=== PATIENT | female | born 1975 | race American Indian/Alaskan Native ===

== ENCOUNTER 2019-08-12 12:42 | Inpatient (IN) | payer OTHER, SELFPAY ==
[2019-08-12] MEDS ORDERED: ASPIRIN 81 MG TAB CHEW PO ONE (14:49)
--- NOTE | 2019-08-12 14:56 | Event Note ---
ED Screening Note Date of service: 08/12/19 Time: 14:49 ED Screening Note: 44-year-old -[place] female patient with history of hypertension (noncompliant with medications x2 years) presents with complaints of substernal chest pressure and headache x yesterday. She also states some mild shortness of breath Denies history of TX/PE/DVT/CVA This initial assessment/diagnostic orders/clinical plan/treatment(s) is/are subject to change based on patients health status, clinical progression and re- assessment by fellow clinical providers in the ED. Further treatment and workup at subsequent clinical providers discretion. Patient/guardian urged not to elope from the ED as their condition may be serious if not clinically assessed and managed. Initial orders include: EKG CXR labs Aspirin
[2019-08-12 15:28] LABS: Basophils # (Auto) 0.1 K/mm3 (0.0-0.1); Basophils % (Auto) 1.1 % (0.0-1.8); Eosinophils % (Auto) 0.5 % (0.0-4.3); Hematocrit 44.7 % (30.3-42.9); Hemoglobin 15.5 gm/dl (10.1-14.3); Lymphocytes # (Auto) 1.1 K/mm3 (1.2-5.4); Lymphocytes % (Auto) 21.6 % (13.4-35.0); Mean Corpuscular HGB Conc 35 % (30-34); Mean Corpuscular Volume 94 fl (79-97); Monocytes # (Auto) 0.3 K/mm3 (0.0-0.8); Monocytes % (Auto) 6.7 % (0.0-7.3); Platelet Count 229 K/mm3 (140-440); Red Blood Count 4.74 M/mm3 (3.65-5.03); Red Cell Distribution Width 16.6 % (13.2-15.2)
--- NOTE | 2019-08-12 15:29 | XRay Report ---
CHEST 1 VIEW INDICATION / CLINICAL INFORMATION: chest pain. COMPARISON: None available. FINDINGS: SUPPORT DEVICES: None. HEART / MEDIASTINUM: No significant abnormality. LUNGS / PLEURA: There are patchy airspace opacities noted in the lung bases. The upper lung zones are clear.. No pneumothorax. ADDITIONAL FINDINGS: No significant additional findings. IMPRESSION: 1. There are mild patchy airspace opacities in the lung bases. His could represent atelectasis. This could represent an evolving pneumonia. Signer Name: Josue Neil MD Signed: 08/12/2019 3:25 PM Workstation Name: [id number]
[2019-08-12 16:14] LABS: Alanine Aminotransferase 14 units/L (7-56); Albumin 3.8 g/dL (3.9-5); BUN/Creatinine Ratio 15; Blood Urea Nitrogen 9 mg/dL (7-17); Calcium 8.9 mg/dL (8.4-10.2); Hemolysis Index 7
--- NOTE | 2019-08-12 17:22 | Emergency Department Report ---
ED Chest Pain HPI - General Chief Complaint: Chest Pain Stated Complaint: CHEST PAIN Time Seen by Provider: 08/12/19 14:49 Source: patient Mode of arrival: Ambulatory Limitations: No Limitations - History of Present Illness Initial Comments: 44-year-old female the past medical history of hypertension off meds x2 years, obesity, and smoking history, and family history of CAD presents to the hospital complaining of chest pain or shortness of breath since yesterday. Patient having intermittent chest pressure. Chest pressure worse when lying supine and accompanied by shortness of breath. Since yesterday patient has had to elevate herself when lying on her back. She also has had dyspnea exertion since yesterday. Positive nausea without vomiting. Patient took herself off of hypertension meds 2 years ago because her blood pressure was good. This was not advised by her doctor and she has not checked her blood pressure since discontinuing the medication. She denies history of PE/DVT, recent travel, calf tenderness, leg edema, known coronavirus exposure, cough, fever, or loss of sense of taste or smell. Patient states her brother of an SC at age 45 last year - Related Data Allergies Allergy/AdvReac Type Severity Reaction Status Date / Time No Known Allergies Allergy Unverified 08/12/19 12:50 Heart Score - HEART Score History: Slightly suspicious EKG: Non-specific Age: 45-65 Risk factors: > 3 risk factors or hx of atherosclerotic disease Troponin: < normal limit HEART Score: 4 ED Review of Systems ROS: Stated complaint: CHEST PAIN Other details as noted in HPI Comment: All other systems reviewed and negative ED Past Medical Hx - Past Medical History Previous Medical History?: No - Surgical History Past Surgical History?: No - Social History Smoking Status: Current Every Day Smoker Substance Use Type: None ED Physical Exam - General Limitations: No Limitations - Other Other exam information: General: No acute distress Head: Atraumatic Eyes: normal appearance ENT: Moist mucous membranes Neck: Normal appearance, no midline tenderness Chest: Clear to auscultation bilaterally, no tachypnea or accessory muscle use CV: Regular rate and rhythm Abdomen: Soft, normal bowel sounds, nontender, nondistended, no rebound or guarding Back: Normal inspection Extremity: Normal inspection, full range of motion, no calf tenderness or leg edema Neuro: Alert O x 3, no facial asymmetry, speech clear, no gross motor sensory deficit Psych: Appropriate behavior Skin: No rash ED Course Vital Signs 08/12/19 08/12/19 08/12/19 14:49 14:50 17:45 Temperature 98.5 F Pulse Rate 89 Respiratory 18 18 Rate Blood Pressure 207/117 185/121 O2 Sat by Pulse 99 96 91 Oximetry 08/12/19 08/12/19 08/12/19 18:00 18:15 18:30 Temperature Pulse Rate Respiratory Rate Blood Pressure 200/114 190/112 202/126 O2 Sat by Pulse Oximetry 08/12/19 18:45 Temperature Pulse Rate 73 Respiratory Rate Blood Pressure 199/119 O2 Sat by Pulse 96 Oximetry - Consultations Consultation #1: 08/12/19 18:35 case d/w DR Horner cardiology, advices admission for cardiac workup, rec covid r/o based on cxr read with plan echo if covid negative. 08/12/19 19:22 case d/w Dr Thompson ID, no recommendations at this time, COVID test pending JEROME score - Jerome Score Age > 65: (0) No Aspirin use within the Past 7 Days: (0) No 3 or more CAD Risk Factors: (1) Yes 2 or more Angina events in past 24 hrs: (1) Yes Known CAD with more than 50% Stenosis: (0) No Elevated Cardiac Markers: (0) No ST Deviation Greater than 0.5mm: (0) No JEROME Score: 2 ED Medical Decision Making - Lab Data Result diagrams: 08/12/19 15:10 08/12/19 15:10 Lab Results 08/12/19 08/12/19 08/12/19 Range/Units 15:10 15:10 15:10 WBC 5.2 (4.5-11.0) K/mm3 RBC 4.74 (3.65-5.03) M/mm3 Hgb 15.5 H (10.1-14.3) gm/dl Hct 44.7 H (30.3-42.9) % MCV 94 (79-97) fl MCH 33 H (28-32) pg MCHC 35 H (30-34) % RDW 16.6 H (13.2-15.2) % Plt Count 229 (140-440) K/mm3 Lymph % (Auto) 21.6 (13.4-35.0) % [place] % (Auto) 6.7 (0.0-7.3) % Eos % (Auto) 0.5 (0.0-4.3) % Baso % (Auto) 1.1 (0.0-1.8) % Lymph # 1.1 L (1.2-5.4) K/mm3 [place] # 0.3 (0.0-0.8) K/mm3 Eos # 0.0 (0.0-0.4) K/mm3 Baso # 0.1 (0.0-0.1) K/mm3 Seg Neutrophils % 70.1 H (40.0-70.0) % Seg Neutrophils # 3.6 (1.8-7.7) K/mm3 Sodium 137 (137-145) mmol/L Potassium 3.8 (3.6-5.0) mmol/L Chloride 97.7 L (98-107) mmol/L Carbon Dioxide 25 (22-30) mmol/L Anion Gap 18 mmol/L BUN 9 (7-17) mg/dL Creatinine 0.6 L (0.7-1.2) mg/dL Estimated GFR > 60 ml/min BUN/Creatinine Ratio 15 % Glucose 94 (65-100) mg/dL Calcium 8.9 (8.4-10.2) mg/dL Total Bilirubin 0.70 (0.1-1.2) mg/dL AST 14 (5-40) units/L ALT 14 (7-56) units/L Alkaline Phosphatase 78 (35-129) units/L Troponin T < 0.010 (0.00-0.029) ng/mL NT-Pro-B Natriuret Pep 557.3 H (0-450) pg/mL Total Protein 8.9 H (6.3-8.2) g/dL Albumin 3.8 L (3.9-5) g/dL Albumin/Globulin Ratio 0.7 % - EKG Data -: EKG Interpreted by [facility] EKG shows normal: sinus rhythm, ST-T waves (LVH with repolarization abnormal) Rate: normal (77) - Radiology Data Radiology results: report reviewed CHEST 1 VIEW INDICATION / CLINICAL INFORMATION: chest pain. COMPARISON: None available. FINDINGS: SUPPORT DEVICES: None. HEART / MEDIASTINUM: No significant abnormality. LUNGS / PLEURA: There are patchy airspace opacities noted in the lung bases. The upper lung zones are clear.. No pneumothorax. ADDITIONAL FINDINGS: No significant additional findings. IMPRESSION: 1. There are mild patchy airspace opacities in the lung bases. His could represent atelectasis. This could represent an evolving pneumonia. Critical Care Time: No Critical care attestation.: If time is entered above; I have spent that time in minutes in the direct care of this critically ill patient, excluding procedure time. ED Disposition Clinical Impression: Uncontrolled hypertension, Dyspnea, Morbid obesity, Smoker, Noncompliance with medication regimen, Chest pain, Abnormal chest xray Disposition: OP ADMIT IP TO THIS HOSP Is pt being admited?: No Condition: Stable Time of Disposition: 19:22 (Dr Warren/hosp)
[2019-08-12] MEDS ORDERED: ASPIRIN 81 MG TAB CHEW ONE (17:32)
[2019-08-12] MEDS ORDERED: cloNIDine 0.1 MG TAB PO ONE (17:55)
[2019-08-12] MEDS ORDERED: FUROSEMIDE 40 MG/4 ML INJ IV ONE (18:09)
[2019-08-12 19:24] LABS: C-Reactive Protein 1.8 mg/dL (0.00-1.30)
[2019-08-12] MEDS ORDERED: ONDANSETRON 4 MG/2 ML INJ IV PRN (19:24)
[2019-08-12] MEDS ORDERED: ACETAMINOPHEN 325 MG TAB PO PRN (19:24)
--- NOTE | 2019-08-12 19:24 | History and Physical Report ---
History of Present Illness Chief complaint: My chest hurts and is hard to breathe History of present illness: 44 YO Female with Obesity Hypoventilation Syndrome, HTN, Medication Noncompliance, Nicotine Dependence presents to ED for evaluation. Pt states that she has experienced chest pain over the past 1 day with persistent symptoms over the same timeframe. Patient also reports shortness of breath. Patient states that her pain is 58/10, intermittent, worsened with exertion, relieved with rest, associated with orthopnea, associated with paroxysmal nocturnal dyspnea, associated with decreased exercise tolerance. Patient also reports multiple episodes of nausea. Patient transported to [facility] via private vehicle for further care and evaluation of the aforementioned symptoms. Patient seen and evaluated in the emergency department. Lab and imaging studies reviewed. Chest x-ray revealed bilateral lower lobe infiltrate which is consistent with pneumonia. Patient also found to have symptoms consistent with angina at rest, acute congestive heart failure, accelerated hypertension with a blood pressure of 22 5/131. Patient initiated on COVID-19 protocol in the emergency department. Patient also initiated on CHF as well as chest pain protocols. Cardiology team consulted in ED. Infectious disease team consulted in the emergency department. Patient admitted to the medical floor with remote telemetry. Patient denies fever, chills, palpitations, productive cough, skin rash, prolonged travel/immobility, unilateral leg swelling, calf pain, individual/family history of DVT/PE/bleeding/blood clotting disorders. No prior admission for review. No medication listed at time of admission for reconciliation. Past History Past Medical History: hypertension, other (See HPI) Past Surgical History: No surgical history, Other (Reviewed) Social history: , lives with family, smoking Family history: diabetes, hypertension Medications and Allergies Allergies Allergy/AdvReac Type Severity Reaction Status Date / Time No Known Allergies Allergy Unverified 08/12/19 12:50 Review of Systems Constitutional: weakness, malaise, no weight loss, no weight gain, no fever, no chills Ears, nose, mouth and throat: no ear pain, no ear discharge, no tinnitis, no decreased hearing, no nose pain Breasts: no change in shape, no swelling, no mass Cardiovascular: chest pain, orthopnea, shortness of breath, dyspnea on exertion, paroxysmal nocturnal dyspnea, decreased exercise tolerance, no rapid/irregular heart beat, no syncope Respiratory: no cough, no cough with sputum, no excessive sputum Gastrointestinal: nausea, no abdominal pain, no vomiting, no diarrhea, no constipation Genitourinary Female: no pelvic pain, no flank pain, no menorrhagia, no dysuria, no urinary frequency, no urgency Rectal: no pain, no incontinence, no bleeding Musculoskeletal: no neck stiffness, no neck pain, no shooting arm pain, no arm numbness/tingling Integumentary: no rash, no pruritis, no redness, no sores, no wounds Neurological: no paralysis, no weakness, no parathesias, no numbness, no tingling, no seizures Psychiatric: no anxiety, no hypersomnia, no change in libido Endocrine: no cold intolerance, no heat intolerance, no polyphagia, no polydipsia, no nocturia, no excessive sweating Hematologic/Lymphatic: no easy bruising, no easy bleeding, no lymphadenopathy, no lymphedema Allergic/Immunologic: no urticaria, no allergic rhinitis, no wheezing Exam - Constitutional Vitals: Temp Pulse Resp BP Pulse Ox 98.5 F 73 18 199/119 96 08/12/19 14:49 08/12/19 18:45 08/12/19 14:50 08/12/19 18:45 08/12/19 18:45 General appearance: Present: mild distress, obese - EENT Eyes: Present: PERRL ENT: hearing intact, clear oral mucosa - Neck Neck: Present: supple, normal ROM - Respiratory Respiratory effort: labored Respiratory: bilateral: diminished, rhonchi - Cardiovascular Heart Sounds: Present: S1 & S2. Absent: rub, click - Extremities Extremities: pulses symmetrical, No edema Peripheral Pulses: within normal limits - Abdominal General gastrointestinal: Present: soft, non-tender, non-distended, normal bowel sounds Female genitourinary: Present: normal - Integumentary Integumentary: Present: clear, warm, dry - Musculoskeletal Musculoskeletal: gait normal, strength equal bilaterally - Psychiatric Psychiatric: appropriate mood/affect, intact judgment & insight - Neurologic Neurologic: CNII-XII intact, moves all extremities HEART Score - HEART Score EKG: Non-specific Age: 45-65 Risk factors: > 3 risk factors or hx of atherosclerotic disease Troponin: Troponin T < 0.010 ng/mL (0.00-0.029) 08/12/19 18:05 Troponin: < normal limit Results - Labs CBC & Chem 7: 08/12/19 15:10 08/12/19 18:38 Labs: Abnormal lab results 08/12/19 08/12/19 08/12/19 Range/Units 15:10 15:10 15:10 Hgb 15.5 H (10.1-14.3) gm/dl Hct 44.7 H (30.3-42.9) % MCH 33 H (28-32) pg MCHC 35 H (30-34) % RDW 16.6 H (13.2-15.2) % Lymph # 1.1 L (1.2-5.4) K/mm3 Seg Neutrophils % 70.1 H (40.0-70.0) % Chloride 97.7 L (98-107) mmol/L Creatinine 0.6 L (0.7-1.2) mg/dL NT-Pro-B Natriuret Pep 557.3 H (0-450) pg/mL Total Protein 8.9 H (6.3-8.2) g/dL Albumin 3.8 L (3.9-5) g/dL Assessment and Plan - Patient Problems (1) Angina at rest Current Visit: Yes Status: Acute Plan to address problem: Admit to telemetry, serial cardiac enzymes, EKG, remote telemetry, morphine, supplemental oxygen, nitro, aspirin, cardiology team consulted in ED. (2) CHF (congestive heart failure) Current Visit: Yes Status: Acute Qualifiers: Heart failure type: systolic Heart failure chronicity: acute Qualified Code(s): I50.21 - Acute systolic (congestive) heart failure Plan to address problem: Strict I's/O, monitor urine output every shift, daily weight, echocardiogram, afterload reduction, blood pressure control, supplemental oxygen, thyroid panel, cardiology team consulted in ED. (3) Suspected 2019 novel coronavirus infection Current Visit: Yes Status: Acute Plan to address problem: COVID-19 protocol: Infectious disease service consulted, coronavirus PCR sent in the emergency department, prolonged ventilation, supportive care. (4) Obesity hypoventilation syndrome Current Visit: Yes Status: Acute Plan to address problem: Supplemental oxygen, nebulizer therapy, noninvasive positive pressure ventilation as clinically indicated, outpatient pulmonology evaluation for sleep study, balanced diet, increase physical activity at discharge, outpatient bariatric surgery consult. (5) Accelerated hypertension Current Visit: Yes Status: Acute Plan to address problem: Monitor blood pressure every shift, IV hydralazine every 6 hours as needed for systolic blood pressure greater than 145, initiate therapy with amlodipine, hy drochlorothiazide, and clonidine as well. Urine drug screen has been ordered and is pending at the time of admission. (6) Noncompliance Current Visit: Yes Status: Acute Plan to address problem: Patient counseled regarding medication noncompliance. Patient knowledges understanding instructions. Patient acknowledges understanding that continued noncompliance may result in worsening symptoms and premature . Patient acknowledges attempting to be more compliant with medication administration in the future. (7) Pneumonia Current Visit: Yes Status: Acute Qualifiers: Lung location: lower lobe of lung Plan to address problem: Pneumonia protocol: Chest x-ray, CBC, CMP, pulse oximetry, nebulizer therapy, noninvasive positive pressure ventilation as clinically indicated, IV antibiotic therapy, blood culture. (8) DVT prophylaxis Current Visit: Yes Status: Acute Plan to address problem: SCD to bilateral lower extremities while in bed, patient is ambulatory
[2019-08-12] MEDS ORDERED: hydrALAZINE 20 MG/1 ML INJ IV ONE (19:56)
[2019-08-12] MEDS ORDERED: hydrALAZINE 20 MG/1 ML INJ ONE (20:00)
[2019-08-12 20:46] LABS: Free T4 (Free Thyroxine) 1.17 ng/dL (0.76-1.46)
[2019-08-12] MEDS ORDERED: hydroCHLOROthiazide 25 MG TAB PO SCH (21:25)
[2019-08-12] MEDS ORDERED: amLODIPine 10 MG TAB PO SCH (21:25)
[2019-08-12] MEDS: cloNIDine 0.2 MG TAB PO SCH (22:11)
[2019-08-13 03:48] LABS: Amphetamine Screen,Urine PRESUMPTIVE NEGATIVE; Benzodiazepines Screen,Urine PRESUMPTIVE NEGATIVE; Cannabinoid Screen,Urine PRESUMPTIVE NEGATIVE; Cocaine Screen,Urine PRESUMPTIVE NEGATIVE; Methadone Screen,Urine PRESUMPTIVE NEGATIVE; Opiate Screen,Urine PRESUMPTIVE NEGATIVE
[2019-08-13 05:17] LABS: Basophils % (Auto) 0.6 % (0.0-1.8); Hematocrit 43.7 % (30.3-42.9); Hemoglobin 14.4 gm/dl (10.1-14.3); Lymphocytes % (Auto) 19.6 % (13.4-35.0); Mean Corpuscular HGB Conc 33 % (30-34); Mean Corpuscular Volume 96 fl (79-97); Monocytes # (Auto) 0.4 K/mm3 (0.0-0.8); Monocytes % (Auto) 7.3 % (0.0-7.3); Platelet Count 216 K/mm3 (140-440); Red Blood Count 4.56 M/mm3 (3.65-5.03); Red Cell Distribution Width 16.4 % (13.2-15.2)
[2019-08-13] MEDS: cloNIDine 0.2 MG TAB PO SCH ×2 (06:03→13:25)
[2019-08-13 06:24] LABS: BUN/Creatinine Ratio 16; Blood Urea Nitrogen 11 mg/dL (7-17); Calcium 8.9 mg/dL (8.4-10.2); Hemolysis Index 3
--- NOTE | 2019-08-13 08:04 | Consultation ---
History of Present Illness - Reason for Consult Consult date: 08/13/19 CHF vs COVID Requesting physician: DARIAN DUTTA - History of Present Illness 44 years old female with morbid obesity, hypertension, tobacco abuse, medication noncompliance, admitted on due to 1 day history of chest discomfort associated with shortness of breath, orthopnea, paroxysmal nocturnal dyspnea, decreased exercise tolerance. Patient also reports nausea. Initial temperature 98.5, HR 89, RR 18, O2 99%, BP 207/117. Initial WBC 5.2. Creatinine 0.6. BNP 557. Ferritin 76, LDH 153, CRP 1.8, d-dimer 188. Chest x-ray demonstrated bilateral lower lobe infiltrates. Patient is satting 96% on room air. Review of Systems: positive in bold print General: fever, chills, malaise Cutaneous: rash, pruritus Head: headaches or injury Eyes: changes in vision, eye pain, double vision Ears: ear pain, ear discharge, ringing or hearing loss Nose: nose bleeding, stuffiness Mouth & throat: bleeding gums, horseness, no dental problems, or swollen glands Neck: no pain, node enlargement/lumps, tyroid enlargement or tenderness Respiratory: SOB, cough, MOCTEZUMA, wheezing, sputum, hemoptysis, pleuritic chest pain Cardiovascular: chest pain, leg edema, cyanosis, MOCTEZUMA, orthopnea Musculoskeletal: edema, deformities, pain Gastrointestinal: nausea, vomiting, hematemesis, diarrhea, constipation, melena, bright red blood in stools, fecal incontinence, jaundice Genitourinary/Reproductive: frequent urination, dysuria, hematuria, incontinence Neurogical: seizures, headaches, weakness, paresthesias, loss of speech or vision; memory loss, vertigo, tremors, numbness Psychiatric: stable mood; excessive anxiety, sadness or moodiness Past History Past Medical History: hypertension, other (See HPI) Past Surgical History: No surgical history, Other (Reviewed) Social history: , lives with family, smoking Family history: diabetes, hypertension Medications and Allergies Allergies Allergy/AdvReac Type Severity Reaction Status Date / Time No Known Allergies Allergy Unverified 08/12/19 12:50 Home Medications Medication Instructions Recorded Confirmed Last Taken Type No Known Home Medications [No 08/12/19 08/12/19 Unknown History Reported Home Medications] Active Meds: Active Medications Acetaminophen (Tylenol) 650 mg PO Q4H PRN PRN Reason: Pain MILD(1-3)/Fever >100.5/PULLIAM Amlodipine Besylate (Amlodipine) 10 mg PO QDAY [facility] Atorvastatin Calcium (Lipitor) 40 mg PO QHS [facility] Last Admin: 08/12/19 22:11 Dose: 40 mg Documented by: Clonidine HCl (Catapres) 0.2 mg PO Q8H [facility] Last Admin: 08/13/19 06:03 Dose: Not Given Documented by: Hydrochlorothiazide (Hctz) 25 mg PO QDAY [facility] Ceftriaxone Sodium (Rocephin/Ns 2 Gm/100 Ml) 2 gm in 100 mls @ 200 mls/hr IV Q24HR [facility]; Protocol Azithromycin 500 mg/ Sodium (Chloride) 250 mls @ 250 mls/hr IV Q24HR [facility]; Protocol Ondansetron HCl (Zofran) 4 mg IV Q8H PRN PRN Reason: Nausea And Vomiting Sodium Chloride (Sodium Chloride Flush Syringe 10 Ml) 10 ml IV BID [facility] Last Admin: 08/12/19 22:12 Dose: 10 ml Documented by: Sodium Chloride (Sodium Chloride Flush Syringe 10 Ml) 10 ml IV PRN PRN PRN Reason: LINE FLUSH Sodium Chloride (Sodium Chloride Flush Syringe 10 Ml) 10 ml IV PRN PRN PRN Reason: LINE FLUSH Physical Examination - Physical Exam Narrative exam: Limited given PPE conservation therapy - Constitutional Vitals: Vital Signs Temp Pulse Resp BP Pulse Ox 98.2 F 71 18 144/67 98 08/13/19 04:47 08/13/19 04:47 08/13/19 04:47 08/13/19 06:03 08/13/19 04:47 Temperature -Last 24 Hours Temperature 98.2 F Temperature 98.5 F Results - Labs CBC & Chem 7: 08/13/19 04:58 08/13/19 04:58 Labs: Abnormal lab results 08/12/19 08/12/19 08/12/19 Range/Units 15:10 15:10 15:10 Hgb 15.5 H (10.1-14.3) gm/dl Hct 44.7 H (30.3-42.9) % MCH 33 H (28-32) pg MCHC 35 H (30-34) % RDW 16.6 H (13.2-15.2) % Lymph # 1.1 L (1.2-5.4) K/mm3 Seg Neutrophils % 70.1 H (40.0-70.0) % Sodium (137-145) mmol/L Chloride 97.7 L (98-107) mmol/L Creatinine 0.6 L (0.7-1.2) mg/dL Glucose (65-100) mg/dL C-Reactive Protein (0.00-1.30) mg/dL NT-Pro-B Natriuret Pep 557.3 H (0-450) pg/mL Total Protein 8.9 H (6.3-8.2) g/dL Albumin 3.8 L (3.9-5) g/dL 08/12/19 08/13/19 08/13/19 Range/Units 18:38 04:58 04:58 Hgb 14.4 H (10.1-14.3) gm/dl Hct 43.7 H (30.3-42.9) % MCH (28-32) pg MCHC (30-34) % RDW 16.4 H (13.2-15.2) % Lymph # 1.0 L (1.2-5.4) K/mm3 Seg Neutrophils % 71.5 H (40.0-70.0) % Sodium 136 L (137-145) mmol/L Chloride 95.8 L (98-107) mmol/L Creatinine (0.7-1.2) mg/dL Glucose 101 H 103 H (65-100) mg/dL C-Reactive Protein 1.80 H (0.00-1.30) mg/dL NT-Pro-B Natriuret Pep (0-450) pg/mL Total Protein (6.3-8.2) g/dL Albumin (3.9-5) g/dL Assessment and Plan Cultures: None Assessment: 44 years old female with morbid obesity, hypertension, tobacco abuse, medication noncompliance, admitted on due to 1 day history of chest discomfort associated with shortness of breath, orthopnea, paroxysmal nocturnal dyspnea, decreased exercise tolerance: #Pulmonary edema versus atypical pneumonia: High suspicion for pulmonary edema. Currently no evidence of COVID-19 infection, however COVID-19 test pending. There is no neutropenia, inflammatory markers are all normal (Ferritin 76, LDH 153, CRP 1.8, d-dimer 188). No evidence of cytokine release syndrome. Even if patient tests positive for COVID-19, symptoms are not typical for COVID-19 i nfection -no fever, no cough, no body aches, no nausea, no diarrhea, no changes in taste or smell. Recommendations: Check procalcitonin if is normal stop antibiotics, currently on ceftriaxone and azithromycin Follow-up COVID-19 test If she is positive for COVID-19, there is no indication for remdesivir or Tocilizumab at this time recheck biomarkers Will follow. Laisha House MD Infectious Diseases Social Service Technician [facility] ([facility] [phone] O [phone]
[2019-08-13] MEDS ORDERED: AZITHROMYCIN 500 MG in SODIUM CHLORIDE 0.9% 250ML 250 ML IV SCH (10:00)
[2019-08-13] MEDS ORDERED: amLODIPine 10 MG TAB PO SCH (10:00)
[2019-08-13] MEDS ORDERED: hydroCHLOROthiazide 25 MG TAB PO SCH (10:00)
[2019-08-13] MEDS ORDERED: cefTRIAXone/NS 2 GM/100 ML 2 GM/100 ML BAG IV SCH (10:00)
[2019-08-13 10:16] LABS: C-Reactive Protein 2.4 mg/dL (0.00-1.30)
--- NOTE | 2019-08-13 10:40 | Consultation ---
History of Present Illness Consult date: 08/13/19 Requesting physician: DARIAN DUTTA Consult reason: chest pain, congestive heart failure History of present illness: The pt is a 44 year old female with a past medical history of morbid obesity, hypertension, tobacco abuse, medication noncompliance. She is previously unknown to our practice. She is COVID-19 PUI and thus HPI is obtained per the chart. She was admitted on due to 1 day history of chest discomfort associated with shortness of breath, orthopnea, paroxysmal nocturnal dyspnea, decreased exercise tolerance. Patient also reports nausea. Initial temperature 98.5, HR 89, RR 18, O2 99%, BP 207/117. Initial WBC 5.2. Creatinine 0.6. BNP 557. Ferritin 76, LDH 153, CRP 1.8, d-dimer 188. Chest x-ray demonstrated bilateral lower lobe infiltrates. Past History Past Medical History: hypertension, other (See HPI) Past Surgical History: No surgical history, Other (Reviewed) Social history: , lives with family, smoking Family history: diabetes, hypertension Medications and Allergies Allergies Allergy/AdvReac Type Severity Reaction Status Date / Time No Known Allergies Allergy Unverified 08/12/19 12:50 Home Medications Medication Instructions Recorded Confirmed Last Taken Type No Known Home Medications [No 08/12/19 08/12/19 Unknown History Reported Home Medications] Active Meds: Active Medications Acetaminophen (Tylenol) 650 mg PO Q4H PRN PRN Reason: Pain MILD(1-3)/Fever >100.5/PULLIAM Amlodipine Besylate (Amlodipine) 10 mg PO QDAY [facility] Last Admin: 08/13/19 09:52 Dose: 10 mg Documented by: Atorvastatin Calcium (Lipitor) 40 mg PO QHS [facility] Last Admin: 08/12/19 22:11 Dose: 40 mg Documented by: Azithromycin (Zithromax) 500 mg PO QDAY [facility] Clonidine HCl (Catapres) 0.2 mg PO Q8H [facility] Last Admin: 08/13/19 06:03 Dose: Not Given Documented by: Hydrochlorothiazide (Hctz) 25 mg PO QDAY [facility] Last Admin: 08/13/19 09:52 Dose: 25 mg Documented by: Ceftriaxone Sodium (Rocephin/Ns 2 Gm/100 Ml) 2 gm in 100 mls @ 200 mls/hr IV Q24HR [facility]; Protocol Last Admin: 08/13/19 09:51 Dose: 200 mls/hr Documented by: Azithromycin 500 mg/ Sodium (Chloride) 250 mls @ 250 mls/hr IV Q24HR [facility]; Protocol Stop: 08/13/19 14:00 Last Admin: 08/13/19 09:51 Dose: 250 mls/hr Documented by: Ondansetron HCl (Zofran) 4 mg IV Q8H PRN PRN Reason: Nausea And Vomiting Sodium Chloride (Sodium Chloride Flush Syringe 10 Ml) 10 ml IV BID [facility] Last Admin: 08/13/19 09:52 Dose: 10 ml Documented by: Sodium Chloride (Sodium Chloride Flush Syringe 10 Ml) 10 ml IV PRN PRN PRN Reason: LINE FLUSH Sodium Chloride (Sodium Chloride Flush Syringe 10 Ml) 10 ml IV PRN PRN PRN Reason: LINE FLUSH Review of Systems All systems: negative (per H&P) Physical Examination Vital Signs Temp Pulse Resp BP Pulse Ox 98.5 F 89 18 207/117 99 08/12/19 14:49 08/12/19 14:49 08/12/19 14:49 08/12/19 14:49 08/12/19 14:49 Narrative exam: agree with physical examination per primary team Results 08/13/19 04:58 08/13/19 04:58 Cardiac Enzymes 08/12/19 08/12/19 08/13/19 Range/Units 15:10 18:38 08:22 AST 14 (5-40) units/L Lactate Dehydrogenase 153 152 (91-180) units/L CBC 08/12/19 08/13/19 Range/Units 15:10 04:58 WBC 5.2 5.0 (4.5-11.0) K/mm3 RBC 4.74 4.56 (3.65-5.03) M/mm3 Hgb 15.5 H 14.4 H (10.1-14.3) gm/dl Hct 44.7 H 43.7 H (30.3-42.9) % Plt Count 229 216 (140-440) K/mm3 Lymph # 1.1 L 1.0 L (1.2-5.4) K/mm3 [place] # 0.3 0.4 (0.0-0.8) K/mm3 Eos # 0.0 0.0 (0.0-0.4) K/mm3 Baso # 0.1 0.0 (0.0-0.1) K/mm3 Comprehensive Metabolic Panel 08/12/19 08/12/19 08/13/19 Range/Units 15:10 18:38 04:58 Sodium 137 136 L (137-145) mmol/L Potassium 3.8 3.7 (3.6-5.0) mmol/L Chloride 97.7 L 95.8 L (98-107) mmol/L Carbon Dioxide 25 27 (22-30) mmol/L BUN 9 11 (7-17) mg/dL Creatinine 0.6 L 0.7 (0.7-1.2) mg/dL Glucose 94 101 H 103 H (65-100) mg/dL Calcium 8.9 8.9 (8.4-10.2) mg/dL AST 14 (5-40) units/L ALT 14 (7-56) units/L Alkaline Phosphatase 78 (35-129) units/L Total Protein 8.9 H (6.3-8.2) g/dL Albumin 3.8 L (3.9-5) g/dL EKG interpretations - Telemetry EKG Rhythm: Sinus Rhythm - EKG Sinus rhythms and dysrhythmias: sinus rhythm Repolarization changes or abnormalities: repolarization abn secondary to ventricular hypertrophy Assessment and Plan AMI r/o. There is low suspicion for heart failure. Pt is COVID-19 PUI, COVID test pending. Plan to obtain echo pending COVID test results. Optimize anti- hypertensive regimen. PNA management per primary/ID team. Will follow. The patient has been seen in conjunction with Dr. Laci Yi who agrees with the assessment and plan of care. - Patient Problems (1) Suspected 2019 novel coronavirus infection Current Visit: Yes Status: Acute (2) Pneumonia Current Visit: Yes Status: Suspected Qualifiers: Lung location: lower lobe of lung (3) Chest pain Current Visit: Yes Status: Acute (4) Accelerated hypertension Current Visit: Yes Status: Acute (5) Smoker Current Visit: Yes Status: Chronic (6) Morbid obesity Current Visit: Yes Status: Chronic (7) Noncompliance with medication regimen Current Visit: Yes Status: Chronic
[2019-08-13 13:04] VITALS: BP 152/88
--- NOTE | 2019-08-13 14:41 | Discharge Summary ---
Providers - Providers Date of Admission: 08/12/19 19:24 Attending physician: OLGA SIMENTAL MD 08/12/19 Consult to Cardiac Rehabilitation [CONS] Routine Reason For Exam: Phase I 08/12/19 18:31 Consult to Physician [CONS] Urgent Comment: Consulting Provider: RIASA GO Physician Instructions: Reason For Exam: sob, possible new onset chf, HTN, cp 08/12/19 18:34 Consult to Physician [CONS] Urgent Comment: Consulting Provider: DOROTHY NOBLES Physician Instructions: Reason For Exam: ? b/l infiltrates vs chf, covid pending Primary care physician: [employer] Hospitalization Reason for admission: Shortness of breath Condition: Stable Hospital course: 44 YO Female with Obesity Hypoventilation Syndrome, HTN, Medication Noncompliance, Nicotine Dependence presents to ED for evaluation. Pt states that she has experienced chest pain over the past 1 day with persistent symptoms over the same timeframe. Patient also reports shortness of breath. Patient states that her pain is 58/10, intermittent, worsened with exertion, relieved with rest, associated with orthopnea, associated with paroxysmal nocturnal d yspnea, associated with decreased exercise tolerance. Patient also reports multiple episodes of nausea. Patient transported to [facility] via private vehicle for further care and evaluation of the aforementioned symptoms. Patient seen and evaluated in the emergency department. Lab and imaging studies reviewed. Chest x-ray revealed bilateral lower lobe infiltrate which is consistent with pneumonia. Patient also found to have symptoms consistent with angina at rest, acute congestive heart failure, accelerated hypertension with a blood pressure of 225/131. Patient initiated on COVID-19 protocol in the emergency department. Patient also initiated on CHF as well as chest pain protocols. Cardiology team consulted in ED. Infectious disease team consulted in the emergency department. Patient admitted to the medical floor with remote telemetry. Patient denies fever, chills, palpitations, productive cough, skin rash, prolonged travel/immobility, unilateral leg swelling, calf pain, individua l/family history of DVT/PE/bleeding/blood clotting disorders. No prior admission for review. No medication listed at time of admission for reconciliation. On admission there was concern for possible pulmonary edema patient was started on antibiotics with improvement and also blood pressure control. Coronavirus testing was done and was negative. Patient will be discharged on Levaquin. Weight loss was discussed in detail smoking cessation was also encouraged. Also recommend an outpatient sleep study to evaluate for obstructive sleep apnea. She will follow with cardiology outpatient no strenuous activity until this is done. (1) Atypical chest pain (2) Pulmonary Edema (3) Suspected 2019 novel coronavirus infection- RULED OUT (4) Obesity hypoventilation syndrome (5) Accelerated hypertension (6) Noncompliance (7) Pneumonia Disposition: DC-01 TO HOME OR SELFCARE Time spent for discharge: 35 MINS Core Measure Documentation - Palliative Care Palliative Care/ Comfort Measures: Not Applicable - Core Measures Any of the following diagnoses?: none Exam - Physical Exam Narrative exam: VITAL SIGNS: Reviewed. GENERAL: The patient appears normally developed, morbid obese vital signs as documented. HEAD: No signs of head trauma. EYES: Pupils are equal. Extraocular motions intact. EARS: Hearing grossly intact. MOUTH: Oropharynx is normal. NECK: No adenopathy, no JVD. CHEST: Chest with clear breath sounds bilaterally. No wheezes, rales, or rhonchi. CARDIAC: Regular rate and rhythm. S1 and S2, without murmurs, gallops, or rubs. VASCULAR: No Edema. Peripheral pulses normal and equal in all extremities. ABDOMEN: Soft, non tender and non distended. No rebound or guarding, and no masses palpated. Bowel Sounds normal. MUSCULOSKELETAL: Good range of motion of all major joints. Extremities without clubbing, cyanosis or edema. NEUROLOGIC EXAM: Alert and oriented x 3 No focal sensory or strength defici ts. Speech normal. Follows commands. PSYCHIATRIC: Mood normal. SKIN: detial exam as documented in skin assessment - Constitutional Vitals: Temp Pulse Resp BP Pulse Ox 98.2 F 68 18 152/88 94 08/13/19 11:48 08/13/19 11:48 08/13/19 11:48 08/13/19 11:48 08/13/19 11:48 Plan Activity: advance as tolerated, fall precautions Diet: low fat Special Instructions: record daily weights, record daily BP diary, smoking cessation Additional Instructions: No sterenous activity untill outpatient cardiology eval Follow up with: THU PATEL MD [Primary Care Provider] - 7 Days JOHNSON SOLORZANO MD [Staff Physician] - 3 Days ROSELINE HILLMAN MD [Staff Physician] - 7 Days Prescriptions: AtorvaSTATin [Lipitor] 40 mg PO QHS #30 tablet Aspirin [Adult Aspirin] 81 mg PO DAILY #30 tablet. amLODIPine 10 mg PO QDAY #30 tablet hydroCHLOROthiazide [HCTZ] 25 mg PO QDAY #30 tablet levoFLOXacin [Levaquin] 750 mg PO QDAY #5 tablet Metoprolol [Lopressor TAB] 25 mg PO BID #60 tablet
[2019-08-14] MEDS ORDERED: AZITHROMYCIN 250 MG TAB PO SCH (10:00)
== END 2019-08-13 17:00 | disposition home or self-care (01) | DRG 291 ==
LOC: ED 12:42 → 3A 19:24
PROVIDERS: ADMIT Internal Medicine; ATTEND Internal Medicine
DX: I11.0 Hypertensive heart disease with heart failure (principal); I50.21 Acute systolic (congestive) heart failure; J18.9 Pneumonia, unspecified organism; E66.2 Morbid (severe) obesity with alveolar hypoventilation; Z68.42 Body mass index [BMI] 45.0-49.9, adult; F17.200 Nicotine dependence, unspecified, uncomplicated; I20.9 Angina pectoris, unspecified; Z91.14 Patient's other noncompliance with medication regimen; Z03.818 Encounter for observation for suspected exposure to other biological agents ruled out; Z82.49 Family history of ischemic heart disease and other diseases of the circulatory system; Z83.3 Family history of diabetes mellitus; R07.89 Other chest pain
CPT/HCPCS: 36415; 71045; 80048; 80053; 80307; 82728; 82947; 83615; 83880; 84145; 84439; 84443; 84484; 85025; 85379; 86140; 93005; G0378; A9270-GY; J0360; J0456; J0696; J1940; J7050; U0003-CS